=== PATIENT | female | born 1995 | race Caucasian/White ===

== ENCOUNTER 2021-03-18 21:41 | Emergency (ER) | payer OTHER ==
[~2021-03-18] VITALS: Ht 152.4 cm; Wt 44.9 kg
[~2021-03-18 21:41] MED LIST: PERCOCET 5/3251 TAB PO; SEPTRA DS TABLE1 TAB PO; SURFAK240 M1 PO
[2021-03-18] MEDS ORDERED: SILVADENE20 GM TOP (22:52)
== END 2021-03-18 22:57 | disposition home or self-care (01) ==
LOC: ER 21:41
DX: S60.222A Contusion of left hand, initial encounter (principal); S60.221A Contusion of right hand, initial encounter; W22.8XXA Striking against or struck by other objects, initial encounter; Y93.89 Activity, other specified; Y92.89 Other specified places as the place of occurrence of the external cause; Y99.8 Other external cause status